=== PATIENT | male | born 2000 | race Two or more races ===

== ENCOUNTER 2021-05-24 16:45 | Emergency (ER) | payer MEDICAID, OTHER ==
[~2021-05-24] VITALS: Ht 188 cm; Wt 86.2 kg
[2021-05-24 16:58] VITALS: BP 144/83
[2021-05-24] MEDS ORDERED: methylPREDNISolone SOD SUCC 125 MG/2 ML VL ONE (17:20)
[2021-05-24] MEDS ORDERED: cefTRIAXone SOD 1,000 MG VL ONE (17:21)
[2021-05-24] MEDS ORDERED: methylPREDNISolone SOD SUCC 125 MG/2 ML VL IM ONE (17:30)
[2021-05-24] MEDS ORDERED: ALBUTEROL SULF 2.5 MG/0.5ML(0.5%) NEB SOLN NEB ONE (17:30)
[2021-05-24] MEDS ORDERED: IPRATROPIUM BROM 0.5 MG/2.5ML INH SOL NEB ONE (17:30)
[2021-05-24] MEDS ORDERED: cefTRIAXone SOD 1,000 MG VL IM ONE (17:30)
== END 2021-05-24 18:22 | disposition home or self-care (01) ==
LOC: ER 16:45
DX: J45.901 Unspecified asthma with (acute) exacerbation (principal); J03.90 Acute tonsillitis, unspecified; F41.9 Anxiety disorder, unspecified
CPT/HCPCS: 71046; 94640; 96372; 99284; J0696; J2930; J7644